=== PATIENT | male | born 1965 | race Caucasian/White ===

== ENCOUNTER 2018-02-05 13:56 | Day surgery (SDC) | payer MEDICAID ==
[~2018-02-05] VITALS: Ht 177.8 cm; Wt 150.0 kg
[2018-02-05 14:04] VITALS: BP 129/63
[2018-02-05] MEDS ORDERED: LINA5TAB4 PO (14:36)
[2018-02-05] MEDS ORDERED: fentaNYL/PF 50MCG/1 ML 2ML syringe ONE (14:36)
[2018-02-05] MEDS ORDERED: MELO-102 PO (14:36)
[2018-02-05] MEDS ORDERED: METF10004 PO (14:36)
[2018-02-05] MEDS ORDERED: MIDAZolam 5mg/5ml vial ONE (14:36)
[2018-02-05] MEDS ORDERED: INSU100V9 SQ (14:37)
[2018-02-05] MEDS ORDERED: ALOG6.252 PO (14:37)
[2018-02-05] MEDS ORDERED: INSU100V11 SQ (14:38)
[2018-02-05 15:35] VITALS: BP 123/46
[2018-02-05 15:45] VITALS: BP 133/52
[2018-02-05 15:55] VITALS: BP 122/67
[2018-02-05 16:05] VITALS: BP 138/75
== END 2018-02-05 16:20 | disposition home or self-care (01) ==
LOC: GI LAB 13:56
PROVIDERS: ATTEND Internal Medicine Gastroenterology
DX: Z12.11 Encounter for screening for malignant neoplasm of colon (principal); K63.5 Polyp of colon; K64.8 Other hemorrhoids; I85.00 Esophageal varices without bleeding; E66.01 Morbid (severe) obesity due to excess calories; K76.6 Portal hypertension; K31.89 Other diseases of stomach and duodenum; L40.8 Other psoriasis; E11.9 Type 2 diabetes mellitus without complications; Z79.4 Long term (current) use of insulin; Z79.84 Long term (current) use of oral hypoglycemic drugs; Z68.42 Body mass index [BMI] 45.0-49.9, adult; Z87.891 Personal history of nicotine dependence; Z79.899 Other long term (current) drug therapy; Z98.890 Other specified postprocedural states
CPT/HCPCS: 43244; 45380; 82948; 99152; 99153; J2250; J3010; J7030; A4620; G0500

== ENCOUNTER 2018-04-09 14:53 | Day surgery (SDC) | payer MEDICAID ==
[~2018-04-09] VITALS: Ht 177.8 cm; Wt 145.4 kg
[2018-04-09 14:10] VITALS: BP 143/83
[~2018-04-09 14:53] MED LIST: ALOG6.252 PO; INSU100V11 SQ; INSU100V9 SQ; LINA5TAB4 PO; MELO-102 PO; METF10004 PO
[2018-04-09] MEDS ORDERED: MIDAZolam 5mg/5ml vial ONE ×2 (15:07→15:28)
[2018-04-09] MEDS ORDERED: LIDOcaine Viscous 15ml cup ONE (15:07)
[2018-04-09] MEDS ORDERED: fentaNYL/PF 50MCG/1 ML 2ML syringe ONE ×2 (15:07→15:28)
[2018-04-09 15:46] VITALS: BP 111/72
[2018-04-09 15:56] VITALS: BP 105/54
[2018-04-09 16:06] VITALS: BP 117/66
[2018-04-09 16:16] VITALS: BP 117/56
== END 2018-04-09 16:10 | disposition home or self-care (01) ==
LOC: GI LAB 14:53
PROVIDERS: ATTEND Internal Medicine Gastroenterology
DX: I85.00 Esophageal varices without bleeding (principal); K76.6 Portal hypertension; K31.89 Other diseases of stomach and duodenum; E11.9 Type 2 diabetes mellitus without complications; L40.8 Other psoriasis; E66.01 Morbid (severe) obesity due to excess calories; Z68.42 Body mass index [BMI] 45.0-49.9, adult; Z79.4 Long term (current) use of insulin; Z79.84 Long term (current) use of oral hypoglycemic drugs; Z79.899 Other long term (current) drug therapy; Z87.891 Personal history of nicotine dependence; Z98.890 Other specified postprocedural states
CPT/HCPCS: 43244; 99152; J2250; J3010; J7030; A4620; G0500

== ENCOUNTER 2018-05-07 12:07 | Day surgery (SDC) | payer MEDICAID ==
[~2018-05-07] VITALS: Ht 177.8 cm; Wt 150.0 kg
[~2018-05-07 12:07] MED LIST changes: -LINA5TAB4 PO
[2018-05-07 12:15] VITALS: BP 147/92
[2018-05-07] MEDS ORDERED: LIDOcaine Viscous 15ml cup ONE (13:07)
[2018-05-07] MEDS ORDERED: fentaNYL/PF 50MCG/1 ML 2ML syringe ONE (13:07)
[2018-05-07] MEDS ORDERED: MIDAZolam 5mg/5ml vial ONE (13:07)
[2018-05-07 14:03] VITALS: BP 143/91
[2018-05-07 14:13] VITALS: BP 160/87
[2018-05-07 14:23] VITALS: BP 157/87
[2018-05-07 14:33] VITALS: BP 145/87
== END 2018-05-07 14:40 | disposition home or self-care (01) ==
LOC: GI LAB 12:07
PROVIDERS: ATTEND Internal Medicine Gastroenterology
DX: I85.00 Esophageal varices without bleeding (principal); K76.6 Portal hypertension; K31.89 Other diseases of stomach and duodenum; K22.8 Other specified diseases of esophagus; L40.50 Arthropathic psoriasis, unspecified; L40.8 Other psoriasis; E66.01 Morbid (severe) obesity due to excess calories; E11.40 Type 2 diabetes mellitus with diabetic neuropathy, unspecified; Z68.42 Body mass index [BMI] 45.0-49.9, adult; Z87.891 Personal history of nicotine dependence; Z79.4 Long term (current) use of insulin; Z79.84 Long term (current) use of oral hypoglycemic drugs; Z79.899 Other long term (current) drug therapy; Z98.890 Other specified postprocedural states
CPT/HCPCS: 43244; J2250; J3010; J7030; A4620; G0500

== ENCOUNTER 2019-05-13 09:33 | Day surgery (SDC) | payer MEDICAID ==
[~2019-05-13] VITALS: Ht 175.3 cm; Wt 144.1 kg
[~2019-05-13 09:33] MED LIST changes: +METF-438 PO; -METF10004 PO
[2019-05-13 09:39] VITALS: BP 146/82
[2019-05-13] MEDS ORDERED: FERR324T4 PO (09:47)
[2019-05-13] MEDS ORDERED: LIRA0.6P2 SQ (09:47)
[2019-05-13] MEDS ORDERED: BUSP10TA3 PO (09:48)
[2019-05-13] MEDS ORDERED: OMEP20CA11 PO (09:48)
[2019-05-13] MEDS ORDERED: PANT-47 PO (09:50)
[2019-05-13] MEDS ORDERED: fentaNYL/PF 50MCG/1 ML 2ML syringe ONE (10:29)
[2019-05-13] MEDS ORDERED: LIDOcaine Viscous 15ml cup ONE (10:30)
[2019-05-13] MEDS ORDERED: MIDAZolam 5mg/5ml vial ONE (10:30)
[2019-05-13 10:54] VITALS: BP 142/90
[2019-05-13 11:04] VITALS: BP 147/88
[2019-05-13 11:14] VITALS: BP 140/83
[2019-05-13 11:24] VITALS: BP 139/75
== END 2019-05-13 11:50 | disposition home or self-care (01) ==
LOC: GI LAB 09:33
PROVIDERS: ATTEND Internal Medicine Gastroenterology
DX: I85.00 Esophageal varices without bleeding (principal); K76.6 Portal hypertension; K31.89 Other diseases of stomach and duodenum; K22.8 Other specified diseases of esophagus
CPT/HCPCS: 43244; 99152; J2250; J3010; J7040; A4620

== ENCOUNTER 2022-08-29 05:08 | Day surgery (SDC) | payer MEDICARE, MEDICAID ==
[2022-08-25 13:29] LABS: BASOPHILS % (AUTO) 0.5 % (0-1); EOSINOPHILS # (AUTO) 0.2 X10'3 (0-0.9); EOSINOPHILS % (AUTO) 4.6 % (0-6); LYMPHOCYTES # (AUTO) 0.9 X10'3 (1.1-4.8); LYMPHOCYTES % (AUTO) 22.8 % (21-51); MEAN CORPUSCULAR HEMOGLOBIN 31.3 PG (27.0-31.0); MEAN CORPUSCULAR HGB CONC 34.3 g/dL (33.0-36.5); MEAN CORPUSCULAR VOLUME 91.2 FL (78-98); MEAN PLATELET VOLUME 8.3 FL (7.4-10.4); MONOCYTES # (AUTO) 0.3 X10'3 (0-0.9); MONOCYTES % (AUTO) 6.4 % (2-12); NEUTROPHILS # (AUTO) 2.7 X10'3 (1.8-7.7); NEUTROPHILS % (AUTO) 65.7 % (42-75); PRE OP HEMATOCRIT 35.3 % (42.0-52.0); PRE OP HEMOGLOBIN 12.1 g/dL (14.0-17.9); RED BLOOD COUNT 3.87 X10'6 (4.70-6.10); RED CELL DISTRIBUTION WIDTH 15.2 % (11.5-14.5)
[2022-08-25 13:43] LABS: ALANINE AMINOTRANSFERASE 18 U/L (12-78); ALBUMIN 3.3 G/DL (3.4-5.0); ALBUMIN/GLOBULIN RATIO 0.8 (1.1-1.5); ALKALINE PHOSPHATASE 82 IU/L (46-116); ANION GAP 8 (8-16); ASPARTATE AMINO TRANSFERASE 23 U/L (10-37); BILIRUBIN,TOTAL 0.7 MG/DL (0.1-1.0); BLOOD UREA NITROGEN 15 MG/DL (7-18); BUN/CREATININE RATIO 15.8 (5.4-32.0); CALCIUM 8.5 MG/DL (8.5-10.1); CHLORIDE 107 MMOL/L (99-107); CREATININE 0.95 MG/DL (0.60-1.10); GLUCOSE 244 MG/DL (70-104); POTASSIUM 3.6 MMOL/L (3.5-5.1); SODIUM 140 MMOL/L (135-145); TOTAL CARBON DIOXIDE 24.7 MMOL/L (24-32); TOTAL PROTEIN 7.5 G/DL (6.4-8.2); eGFR 82 ML/MIN
[2022-08-25 13:47] LABS: PRE OP PLATELET COUNT 57 X10'3 (140-440)
[~2022-08-29] VITALS: Ht 175.3 cm; Wt 106.5 kg
[2022-08-29] VITALS (9 sets, daily range): BP systolic 90–111; BP diastolic 47–68
[~2022-08-29 05:08] MED LIST changes: +ALFU10TA10 PO; -ALOG6.252 PO; +BUSP10TA3 PO; -INSU100V11 SQ; +PANT-47 PO; +SEMA0.25 SQ; +ringers solution, lacted 1,000 ML IV SCH
[2022-08-29] MEDS ORDERED: famotidine 20mg tablet PO ONE (05:30)
[2022-08-29] MEDS ORDERED: ceFAZolin inj. 2,000 MG in dextrose 5%-water 100 ML IV ONE (05:30)
[2022-08-29] MEDS ORDERED: FERR324T PO (06:31)
[2022-08-29] MEDS ORDERED: GUSE100A (06:31)
[2022-08-29] MEDS ORDERED: SILD50TA53 PO (06:31)
[2022-08-29] MEDS ORDERED: CITA10TA14 PO (06:31)
[2022-08-29] MEDS ORDERED: PREG75CA75 PO (06:31)
[2022-08-29] MEDS ORDERED: BUPIVAcaine 0.5% inj/PF 30 ML ONE (06:40)
[2022-08-29 06:44] LABS: BASOPHILS % (AUTO) 0.7 % (0-1); EOSINOPHILS # (AUTO) 0.2 X10'3 (0-0.9); EOSINOPHILS % (AUTO) 5.4 % (0-6); HEMATOCRIT 31.1 % (42.0-52.0); HEMOGLOBIN 10.9 g/dl (14.0-17.9); LYMPHOCYTES # (AUTO) 0.9 X10'3 (1.1-4.8); LYMPHOCYTES % (AUTO) 26.7 % (21-51); MEAN CORPUSCULAR HEMOGLOBIN 31.8 PG (27.0-31.0); MEAN CORPUSCULAR HGB CONC 35.1 g/dL (33.0-36.5); MEAN CORPUSCULAR VOLUME 90.9 FL (78-98); MEAN PLATELET VOLUME 9.2 FL (7.4-10.4); MONOCYTES # (AUTO) 0.3 X10'3 (0-0.9); MONOCYTES % (AUTO) 9.5 % (2-12); NEUTROPHILS # (AUTO) 1.9 X10'3 (1.8-7.7); NEUTROPHILS % (AUTO) 57.7 % (42-75); RED BLOOD COUNT 3.42 X10'6 (4.70-6.10); WHITE BLOOD COUNT 3.2 X10'3 (4.5-11.0)
[2022-08-29 06:59] LABS: PLATELET COUNT 43 X10'3 (140-440)
[2022-08-29] MEDS ORDERED: labetalol 20mg/4ml (5mg/ml) syringe IV PRN (07:10)
[2022-08-29] MEDS ORDERED: hydrALAZINE 20mg/ml inj. IV PRN (07:10)
[2022-08-29] MEDS ORDERED: morphine 4 MG/ML inj SYRINge IV PRN (07:10)
[2022-08-29] MEDS ORDERED: ringers solution, lacted 1,000 ML IV SCH (07:10)
[2022-08-29] MEDS ORDERED: ondansetron/PF 4mg/2ml inj IV PRN (07:10)
[2022-08-29] MEDS ORDERED: fentaNYL/PF 50MCG/1 ML 2ML syringe IV PRN ×2 (07:10)
[2022-08-29] MEDS ORDERED: morphine 2 MG/ML inj. syringe IV PRN (07:10)
[2022-08-29] MEDS ORDERED: FENTANYL CITRATE/PF 50 MCG/1 ML VIAL ONE (07:14)
[2022-08-29] MEDS ORDERED: MIDAZolam 1 MG/ML 5ML VIAL ONE (07:15)
[2022-08-29] MEDS ORDERED: LIDOcaine 0.5% (5mg/ml) 50ml vial ONE (07:15)
[2022-08-29] MEDS ORDERED: BUPIVAcaine 0.5% inj/PF 30 ml vial IJ ONE (07:45)
--- NOTE | 2022-08-29 07:55 | NUR ---
PT ARRIVED TO VIA GURNEY, AWAKE, VSS, DENIES PAIN, RIGHT HAND WRAPPED-FINGERS PINK ABLE TO MOVE, PIV 20 TO LEFT HAND.
== END 2022-08-29 09:05 | disposition home or self-care (01) ==
LOC: PAS 05:08
PROVIDERS: ATTEND Orthopaedic Surgery Hand Surgery
DX: G56.01 Carpal tunnel syndrome, right upper limb (principal); F32.9 Major depressive disorder, single episode, unspecified; Z79.899 Other long term (current) drug therapy; Z98.890 Other specified postprocedural states; Z79.4 Long term (current) use of insulin; M19.90 Unspecified osteoarthritis, unspecified site; G62.9 Polyneuropathy, unspecified; Z87.891 Personal history of nicotine dependence
CPT/HCPCS: 29848; 36415; 80053; 82948; 85025; 93005; J0690; J2250; J3010; J3490; J7030; J7060; J7120; S0020; Z7506; Z7512; A4215; A6449; A7000

== ENCOUNTER 2022-09-23 05:13 | Day surgery (SDC) | payer MEDICARE, MEDICAID ==
[2022-09-20 15:16] LABS: BASOPHILS % (AUTO) 0.6 % (0-1); EOSINOPHILS # (AUTO) 0.2 X10'3 (0-0.9); EOSINOPHILS % (AUTO) 4.3 % (0-6); LYMPHOCYTES # (AUTO) 0.8 X10'3 (1.1-4.8); LYMPHOCYTES % (AUTO) 21.9 % (21-51); MEAN CORPUSCULAR HEMOGLOBIN 31.4 PG (27.0-31.0); MEAN CORPUSCULAR HGB CONC 34.9 g/dL (33.0-36.5); MEAN CORPUSCULAR VOLUME 89.9 FL (78-98); MEAN PLATELET VOLUME 8.6 FL (7.4-10.4); MONOCYTES # (AUTO) 0.2 X10'3 (0-0.9); MONOCYTES % (AUTO) 6.6 % (2-12); NEUTROPHILS # (AUTO) 2.4 X10'3 (1.8-7.7); NEUTROPHILS % (AUTO) 66.6 % (42-75); PRE OP HEMATOCRIT 33.4 % (42.0-52.0); PRE OP HEMOGLOBIN 11.7 g/dL (14.0-17.9); RED BLOOD COUNT 3.72 X10'6 (4.70-6.10); RED CELL DISTRIBUTION WIDTH 14.8 % (11.5-14.5)
[2022-09-20 15:29] LABS: ALBUMIN 3.2 G/DL (3.4-5.0); ALBUMIN/GLOBULIN RATIO 0.8 (1.1-1.5); ALKALINE PHOSPHATASE 95 IU/L (46-116); BLOOD UREA NITROGEN 13 MG/DL (7-18); BUN/CREATININE RATIO 14.1 (5.4-32.0); CALCIUM 8.6 MG/DL (8.5-10.1); CHLORIDE 104 MMOL/L (99-107); CREATININE 0.92 MG/DL (0.60-1.10); PRE OP ALT 24 U/L (30-65); PRE OP ANION GAP 5 (8-16); PRE OP AST 30 U/L (10-37); PRE OP BILIRUB, TOTAL 0.9 MG/DL (0.0-1.0); PRE OP SODIUM 137 MMOL/L (135-145); TOTAL CARBON DIOXIDE 28.5 MMOL/L (24-32); TOTAL PROTEIN 7.3 G/DL (6.4-8.2); eGFR 85 ML/MIN
[2022-09-20 15:32] LABS: PRE OP GLUCOSE 269 MG/DL (70-104)
[2022-09-20 15:42] LABS: LARGE PLATELETS FEW; PLATELET ESTIMATE DECREASED; PRE OP PLATELET COUNT 70 X10'3 (140-440)
[~2022-09-23] VITALS: Ht 177.8 cm; Wt 103.3 kg
[2022-09-23] VITALS (8 sets, daily range): BP systolic 95–111; BP diastolic 38–67
[~2022-09-23 05:13] MED LIST changes: +CITA10TA14 PO; +FERR324T PO; +GUSE100A; +PREG75CA75 PO; +SILD50TA53 PO
[2022-09-23] MEDS ORDERED: ceFAZolin inj. 2,000 MG in dextrose 5%-water 100 ML IV ONE (05:30)
[2022-09-23] MEDS ORDERED: famotidine 20mg tablet PO ONE (05:30)
[2022-09-23] MEDS ORDERED: BUPIVAcaine/PF 5 mg/ml 10ml ONE (06:44)
[2022-09-23] MEDS ORDERED: FENTANYL CITRATE/PF 50 MCG/1 ML VIAL ONE (07:33)
[2022-09-23] MEDS ORDERED: morphine 2 MG/ML inj. syringe IV PRN (07:35)
[2022-09-23] MEDS ORDERED: ondansetron/PF 4mg/2ml inj IV PRN (07:35)
[2022-09-23] MEDS ORDERED: acetaminophen 1,000mg/100ml IV 100 ML IV PRN (07:35)
[2022-09-23] MEDS ORDERED: hydrALAZINE 20mg/ml inj. IV PRN (07:35)
[2022-09-23] MEDS ORDERED: morphine 4 MG/ML inj SYRINge IV PRN (07:35)
[2022-09-23] MEDS ORDERED: meperidine/PF 25mg/ml syringe IV PRN (07:35)
[2022-09-23] MEDS ORDERED: ringers solution, lacted 1,000 ML IV SCH (07:35)
[2022-09-23] MEDS ORDERED: fentaNYL/PF 50MCG/1 ML 2ML syringe IV PRN ×2 (07:35)
[2022-09-23] MEDS ORDERED: labetalol 20mg/4ml (5mg/ml) syringe IV PRN (07:35)
[2022-09-23] MEDS ORDERED: proCHLORperazine 10 MG/2 ml inj IV PRN (07:35)
[2022-09-23] MEDS ORDERED: midazolam 1 mg/ML 2ml injection ONE (07:58)
[2022-09-23] MEDS ORDERED: LIDOcaine 0.5% (5mg/ml) 50ml vial ONE (07:58)
[2022-09-23] MEDS ORDERED: propofol inj 20 ML IV ONE (07:58)
--- NOTE | 2022-09-23 08:18 | NUR ---
Received from OR via [facility], accompanied by Anesthesiologist DR RUELAS and report given by Anesthesiolgist. PT PRESENTS WITH 20 RIGHT HAND, LEFT HAND DRERSSING CDI, VSS. Addendum: 09/23/22 at 0819 by Hedy Grissom RN, RN Amended: Links added.
--- NOTE | 2022-09-23 09:12 | NUR ---
PATIENT A&OX4, DENIES PAIN, V/S WNL, SCD OFF, 20G TO LUE D/C, RIGHT WRIST DRESSING CDI W/ SLING. ICE AND ELEVATED RUE. I HAVE REVIEWED D/C INSTRUCTIONS WITH PATIENT INSTRUCTIONS WITH PATIENT AND THEY HAVE VERBALIZED UNDERSTANDING. PATIENT D/C HOME WITH ALL BELONGINGS AND FAMILY TRANSPORTED PATIENT HOME. Addendum: 09/23/22 at 0920 by Hedy Grissom RN, RN Amended: Links added.
== END 2022-09-23 09:12 | disposition home or self-care (01) ==
LOC: PRE-OP 05:13 → PAS 09:12
PROVIDERS: ATTEND Orthopaedic Surgery Hand Surgery
DX: G56.02 Carpal tunnel syndrome, left upper limb (principal); F32.9 Major depressive disorder, single episode, unspecified; K74.60 Unspecified cirrhosis of liver; M19.90 Unspecified osteoarthritis, unspecified site; E11.40 Type 2 diabetes mellitus with diabetic neuropathy, unspecified; Z79.899 Other long term (current) drug therapy; Z98.890 Other specified postprocedural states; F17.210 Nicotine dependence, cigarettes, uncomplicated; E66.01 Morbid (severe) obesity due to excess calories
CPT/HCPCS: 29848; 36415; 80053; 82948; 85025; J0690; J2250; J2704; J3010; J3490; J7030; J7060; J7120; Z7506; Z7512; 85008; A4215; A7000

== ENCOUNTER 2023-01-04 07:19 | Day surgery (SDC) | payer MEDICARE, MEDICAID ==
[~2023-01-04] VITALS: Ht 175.3 cm; Wt 111.4 kg
[~2023-01-04 07:19] MED LIST changes: -ringers solution, lacted 1,000 ML IV SCH
[2023-01-04 07:27] VITALS: BP 140/78
[2023-01-04] MEDS ORDERED: MIDAZolam 1 MG/ML 5ML VIAL ONE (07:44)
[2023-01-04] MEDS ORDERED: fentaNYL/PF 50MCG/1 ML 2ML syringe ONE (07:44)
[2023-01-04] MEDS ORDERED: LIDOcaine Viscous 15ml cup ONE (07:55)
[2023-01-04 08:20] VITALS: BP 114/69
[2023-01-04 08:30] VITALS: BP 127/64
[2023-01-04 08:40] VITALS: BP 120/71
[2023-01-04 08:50] VITALS: BP 129/67
== END 2023-01-04 09:50 | disposition home or self-care (01) ==
LOC: GI LAB 07:19
PROVIDERS: ATTEND Specialist
DX: I85.00 Esophageal varices without bleeding (principal); E66.01 Morbid (severe) obesity due to excess calories; E11.9 Type 2 diabetes mellitus without complications; K75.81 Nonalcoholic steatohepatitis (NASH); K76.6 Portal hypertension; K31.89 Other diseases of stomach and duodenum
CPT/HCPCS: 43244; G0500; J2250; J3010; J7030; Z7512; 43235; 99152

== ENCOUNTER 2024-04-08 09:06 | Outpatient (CLI) | payer MEDICARE, MEDICAID ==
[~2024-04-08 09:06] MED LIST changes: -ALFU10TA10 PO; +ALFU10TA47 PO; -MELO-102 PO; -PREG75CA75 PO; +PREG75CA76 PO; -SEMA0.25 SQ
== END 2024-04-08 23:59 | disposition home or self-care (01) ==
LOC: RAD 09:06
PROVIDERS: ATTEND Transplant Surgery
DX: K80.20 Calculus of gallbladder without cholecystitis without obstruction (principal); K74.69 Other cirrhosis of liver; R16.1 Splenomegaly, not elsewhere classified
CPT/HCPCS: 76700

== ENCOUNTER 2024-07-26 08:18 | Outpatient (CLI) | payer MEDICARE, MEDICAID ==
[2024-07-26] MEDS ORDERED: iohexol 350MG/ML 100ml bottle IV ONE (09:31)
== END 2024-07-26 21:35 | disposition home or self-care (01) ==
LOC: RAD 08:18
PROVIDERS: ATTEND Transplant Surgery
DX: K74.69 Other cirrhosis of liver (principal); K75.81 Nonalcoholic steatohepatitis (NASH); R10.9 Unspecified abdominal pain; R16.1 Splenomegaly, not elsewhere classified; K80.20 Calculus of gallbladder without cholecystitis without obstruction; K76.6 Portal hypertension
CPT/HCPCS: 74170; Q9967

== ENCOUNTER 2024-10-17 08:53 | Outpatient (CLI) | payer MEDICARE, MEDICAID ==
[~2024-10-17 08:53] MED LIST changes: +iohexol 300mg/ml 100ml inj. ONE
== END 2024-10-17 23:59 | disposition home or self-care (01) ==
LOC: RAD 08:53
PROVIDERS: ATTEND Transplant Surgery
DX: N28.1 Cyst of kidney, acquired (principal); N20.0 Calculus of kidney; J98.4 Other disorders of lung; I86.8 Varicose veins of other specified sites; J98.11 Atelectasis; R16.1 Splenomegaly, not elsewhere classified; K80.20 Calculus of gallbladder without cholecystitis without obstruction; K74.69 Other cirrhosis of liver; K75.81 Nonalcoholic steatohepatitis (NASH); R10.9 Unspecified abdominal pain
CPT/HCPCS: 74170; Q9967

== ENCOUNTER 2025-01-29 09:05 | Outpatient (CLI) | payer MEDICARE, MEDICAID ==
[~2025-01-29 09:05] MED LIST changes: +GADOTERATE MEGLUMINE 7.5 MMOL/15 ML VIAL IV ONE; -iohexol 300mg/ml 100ml inj. ONE
--- NOTE | 2025-01-29 14:09 | RADIOLOGY REPORT ---
PROCEDURE: MR MRI ABDOMEN Indication: CIRRHOSIS OF LIVER, PORTAL HTN COMPARISON: 10/17/2024 TECHNIQUE: Multiplanar multisequence images of the abdomen are obtained. FINDINGS: Cirrhotic morphology liver. Hepatic steatosis. 1.3 cm left hepatic lobe enhancing lesion. Another 1. 3 cm enhancing lesion within the left hepatic lobe. The lesion are seen on the portal venous phase of the examination. Sequela of hypertension esophageal varices varices. There is a large gastro renal shunt. Wellness bl and thrombus in the portal vein measuring 1.5 cm. Cholelithiasis. Common bile duct is normal in caliber, measuring 4 mm. No evidence for electro cholel ithiasis. Spleen is enlarged measuring 15 cm craniocaudal. No hydronephrosis both renal peripelvic cysts. Stomach is relatively nondistended. Pancreas unremarkable. Small mesenteric axis lymph nodes. IMPRESSION: 1. Cirrhotic morphology liver with sequela of portal hypertension including splenic varices gastric v arices, splenomegaly 2. 2 subtle enhancing lesions in the left hepatic lobe measuring 1.3 cm each, concerning for hepatoce llular carcinoma. The contrast enhanced images of this examination already demonstrate portal venous flow. Recommend dedicated multiphasic MRI abdomen with and without contrast with arterial phase imag ing to further evaluate and correlation with alpha fetoprotein to evaluate for hepatocellular carcino ma 3. Small amount of thrombus within the main portal vein. 4. Cholelithiasis 5. Other findings as described.
[2025-01-30] MEDS ORDERED: GADOTERATE MEGLUMINE 7.5 MMOL/15 ML VIAL IV ONE (16:24)
== END 2025-01-29 23:59 | disposition home or self-care (01) ==
LOC: MRI 09:05
PROVIDERS: ATTEND Transplant Surgery
DX: K80.20 Calculus of gallbladder without cholecystitis without obstruction (principal); K76.0 Fatty (change of) liver, not elsewhere classified; K74.69 Other cirrhosis of liver; K76.6 Portal hypertension; R59.0 Localized enlarged lymph nodes; K76.9 Liver disease, unspecified; R16.1 Splenomegaly, not elsewhere classified; I82.90 Acute embolism and thrombosis of unspecified vein; K74.60 Unspecified cirrhosis of liver
CPT/HCPCS: 74183; A9575

== ENCOUNTER 2025-08-14 11:38 | Outpatient (CLI) | payer MEDICARE, MEDICAID ==
[~2025-08-14 11:38] MED LIST changes: -GADOTERATE MEGLUMINE 7.5 MMOL/15 ML VIAL IV ONE
--- NOTE | 2025-08-14 15:46 | RADIOLOGY REPORT ---
CLINICAL HISTORY: OTHER CIRRHOSIS OF LIVER. TECHNIQUE: Multi sequence multi planar MRI images of the abdomen were obtained prior to and after the uneventful administration of 15 mL Clariscan contrast. COMPARISON: MR MRI ABDOMEN on DOS: 01/29/25, CT CT ABDOMEN W/WO IV CONTRAST on DOS: 10/17/24, CT CT ABDOMEN on DOS: 07/26/24 FINDINGS: There is motion artifact and artifact secondary to body habitus which limits evaluation. There is cirrhotic liver morphology with nodular contour of the liver and relative enlargement of the left hepatic lobe. There is hepatic steatosis. There are multiple arterially enhancing lesions in the liver, with the largest measuring up to 4.3 cm area in the left hepatic lobe segment IV and 3.5 cm in the left hepatic lobe segment III. There is a 1.3 cm arterially enhancing lesion in the caudate lobe. There is a 1.1 cm lesion at the inferior aspect of the right hepatic lobe. All of the lesions become isointense to the adjacent liver parenchyma on more delayed images. No washout demonstrated. The segment III lesion demonstrates a small focus of hypo enhancement measuring up to 1 cm, which remains hypo enhancing to the adjacent liver parenchyma on more delayed images. The main portal vein is dilated up to 1.9 cm. No portal venous thrombosis. The spleen is enlarged, measuring up to 20.7 cm in greatest dimension. Prominent splenic varices are seen. The gallbladder is partially contracted. No biliary ductal dilatation. The pancreas, adrenal glands, and kidneys appear unremarkable. Esophageal and gastric varices also noted. No abdominal aortic aneurysm. IMPRESSION: 1. Cirrhotic liver morphology. There are arterially enhancing lesions in the liver as described above. 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 Difficult to compare to the prior MRI due to the limitations of the previous examination to evaluate for interval change. Recommend multi-disciplinary discussion for further workup of LR4 lesions. 2. Splenomegaly and Additional sequela of portal hypertension as described above. No portal venous thrombosis demonstrated.
[2025-08-14] MEDS ORDERED: GADOTERATE MEGLUMINE 7.5 MMOL/15 ML VIAL IV ONE (16:09)
== END 2025-08-14 23:59 | disposition home or self-care (01) ==
LOC: MRI 11:38
PROVIDERS: ATTEND Transplant Surgery
DX: K74.69 Other cirrhosis of liver (principal); R16.1 Splenomegaly, not elsewhere classified; K82.8 Other specified diseases of gallbladder; K76.6 Portal hypertension
CPT/HCPCS: 74183; A9575

== ENCOUNTER 2025-09-16 09:33 | Outpatient (CLI) | payer MEDICARE, MEDICAID ==
[2025-09-11 12:21] LABS: CREATININE 1.09 MG/DL (0.60-1.10); TOTAL CARBON DIOXIDE 28.1 MMOL/L (24-32); eGFR 69 ML/MIN
[~2025-09-16 09:33] MED LIST changes: +iohexol 300mg/ml 100ml inj. ONE
--- NOTE | 2025-09-16 14:55 | RADIOLOGY REPORT ---
Exam: CT CT ABD-DIAPHRAGM TO CREST ONLY W/WO IV CONTRAST History: ABNORMAL FINDINGS ON DX IMAGING OF LIVER AND BILIARY TRACT Comparison Study: CT CT ABDOMEN W/WO IV CONTRAST on DOS: 10/17/24, CT CT ABDOMEN on DOS: 07/26/24 Technique: Multidetector spiral CT of the abdomen was performed from lung bases to iliac crest. 100 cc of intravenous contrast was administered during this examination. Portal venous imaging was obtained. Axial, coronal and sagittal multiplanar reformats were performed by the technologist on a separate workstation. Radiation Dose : CT Dose: CTDI volume is 32.7 mGy. Dose-length product is 3439 mGy*cm Findings: Lung Bases: No acute or significant lung base finding. Normal heart size. No pleural or pericardial effusion. Liver: Hepatic cirrhosis. Unchanged indeterminate vague area of enhancement measuring 1.8 cm high in the left hepatic dome, segment 2 /4. Additional areas of enhancement noted on MRI are not appreciated on current exam. Gallbladder and Biliary Tree: Cholelithiasis. Spleen: Splenomegaly. Pancreas: The pancreas is normal in appearance without focal lesions or abnormal enhancement. Adrenal Glands: Unremarkable Kidneys: Kidneys demonstrate normal symmetric enhancement without focal lesions, calculi or hydronephrosis. Visualized Bowel: Post gastric bypass. The stomach is grossly normal in appearance. Small bowel and colon are normal in caliber and distribution. Ascites: Absent Lymphadenopathy: No mesenteric, retroperitoneal or periportal lymphadenopathy. Abdominal Wall and Mesentery: Upper abdominal varices. Vasculature: Vascular calcifications of the aorta. Musculoskeletal: No aggressive focal bony lesions, acute fractures or dislocation. Degenerative changes of the spine. IMPRESSION: Hepatic cirrhosis with sequelae of portal hypertension. Indeterminate vague area of enhancement measuring 1.8 cm high in the left hepatic dome, segment 2/ Additional areas of enhancement noted on MRI are not appreciated on current exam. This may be related to differences and technique and artifact from patient's arms in the field of view. Recommend follow-up MRI without and with intravenous contrast in 3 months. Cholelithiasis. Radiation optimization: All CT scans at this facility use at least one of these dose optimization techniques: automated exposure control mA and/or kV adjustment per patient size (includes targeted exams where dose is matched to clinical indication) or iterative reconstruction.
== END 2025-09-16 23:59 | disposition home or self-care (01) ==
LOC: RAD 09:33
PROVIDERS: ATTEND Transplant Surgery
DX: Z01.818 Encounter for other preprocedural examination (principal); K80.20 Calculus of gallbladder without cholecystitis without obstruction; K74.69 Other cirrhosis of liver; Z12.89 Encounter for screening for malignant neoplasm of other sites; R93.2 Abnormal findings on diagnostic imaging of liver and biliary tract
CPT/HCPCS: 36415; 74170; 80048; Q9967